=== PATIENT | male | born 1955 | race Caucasian/White ===

== ENCOUNTER 2019-03-06 22:22 | Inpatient (IN) | payer OTHER, MEDICAID ==
[~2019-03-06] VITALS: Ht 167.6 cm; Wt 65.8 kg
--- NOTE | 2019-03-06 23:16 | NUR ---
NO ANS IN THE LOBBY.
--- NOTE | 2019-03-06 23:30 | NUR ---
NO ANSWER IN LOBBY
[2019-03-07 00:05] VITALS: Ht 167.6 cm; Wt 65.8 kg
--- NOTE | 2019-03-07 00:35 | NUR ---
XRAY AT BEDSIDE.
--- NOTE | 2019-03-07 00:37 | NUR ---
PT PRESENTS TO ED WITH C/C OF DIZZINESS AND TREMBLING BEGINNING PRIOR TO DIALYSIS THIS EVENING. PER PT, HE WAS TURNED AWAY FROM DIALYSIS THIS EVENING DUE TO BEING "TOO UNWELL TO GO THROUGH DIALYSIS." PER PT, DIALYSIS CENTER TOLD HIM TO GO TO THE HOSPITAL. PT REPORTS THAT HE HAS ALSO HAD A PRODUCTIVE COUGH SINCE LAST WEDNESDAY. DENIES SOB OR CP, DENIES FEVER. PT ALSO REPORTS HAVING RIGHT, BIG TOE PAIN. TOE NOTED TO BE BLACKENED TO THE BASE WITH SLOUGHING AND EDEMA NOTED TO THE BASE OF THE TOES. REDNESS AND EDEMA NOTED UP TO MID FOOT. PT REPORTS TOE HAS BEEN BLACKENED FOR APPROXIMATELY 3 DAYS. PT ALSO REPORTS FEELING NAUSEOUS FOR THE PAST FEW DAYS. PT IS AWAKE, SPEAKING IN FULL CLEAR SENTENCES, AAOX4, RESP E/U, NAD NOTED. MSE COMPLETED BY DR. ABDI.
--- NOTE | 2019-03-07 00:45 | NUR ---
DR. ABDI AT BEDSIDE.
[2019-03-07 00:55] LABS: PLATELET COUNT 205 x10^3mcL (130-400); RED CELL DISTRIBUTION WIDTH 14.4 % (11.5-14.5)
[2019-03-07 01:03] LABS: ALBUMIN 2.7 g/dL (3.4-5.0); BILIRUBIN TOTAL 0.55 mg/dL (0.20-1.00); CARBON DIOXIDE 33.3 mmol/L (21-32); POTASSIUM SERUM 4.6 mmol/L (3.5-5.1); TOTAL PROTEIN, SERUM 7.2 g/dL (6.4-8.2)
[2019-03-07 01:04] LABS: CREATININE SERUM 10.1 mg/dL (0.7-1.3)
[2019-03-07 01:10] LABS: BAND NEUTROPHIL 3 % (0-10); BASOPHIL 0 % (0-2); MONOCYTE 9 % (0-7); SEGMENTED NEUTROPHILS 80 % (37-75); rbc morphology (normal/abnorm) ABNORMAL (NORMAL)
--- NOTE | 2019-03-07 01:34 | NUR ---
PT MEDICATED PER MD ORDER. PT VERBALIZED UNDERSTANDING OF MEDICATION PRIOR TO ADMINISTRATION.
[2019-03-07] MEDS ORDERED: GOOD SENSE ASPI81 M3 PO (01:46)
[2019-03-07] MEDS ORDERED: NOR10 PO (01:47)
[2019-03-07] MEDS ORDERED: HYDRALAZINE HCL25 MG PO (01:47)
[2019-03-07] MEDS ORDERED: NEPHRO-VITE VITA1 EA PO (01:48)
[2019-03-07] MEDS ORDERED: CARVEDILOL25 M1 GT (01:48)
[2019-03-07] MEDS ORDERED: CARVEDILOL25 M1 PO (01:48)
[2019-03-07] MEDS ORDERED: LIPI10 PO (01:48)
[2019-03-07] MEDS ORDERED: LISINOPRIL40 MG PO (01:49)
[2019-03-07] MEDS ORDERED: PENTOXIFYL XR400 M1 PO (01:49)
[2019-03-07] MEDS ORDERED: GLIPIZIDE10 M2 PO (01:49)
[2019-03-07] MEDS ORDERED: LOPERAMIDE HCL2 MG PO (01:50)
--- NOTE | 2019-03-07 01:56 | NUR ---
REPORT CALLED TO DAYANARA DESHPANDE TO ASSUME CARE FOR PT.
[2019-03-07 02:02] LABS: CHOLESTEROL/HDL RATIO 5.7
--- NOTE | 2019-03-07 02:07 | NUR ---
PT MEDICATED PER MD ORDER. PT VERBALIZED UNDERSTANDING OF MEDICATION PRIOR TO ADMINISTRATION.
[2019-03-07 03:05] VITALS: BP 119/50
--- NOTE | 2019-03-07 03:28 | NUR ---
RECEIVED PT FROM ED, C/O RIGHT FOOT PAIN 09/05. A/O X4. TELE #26 SHOWING SINUS RHYTHM, DENIES CHEST PAIN. PULSES PALPABLE IN ALL EXTREMITIES, NO EDEMA NOTED. LUNG SOUNDS DIMINISHED IN BILATERAL BASES, DENIES SOB, C/O PRODUCTIVE COUGH. BOWEL SOUNDS ACTIVE, LAST BM 03/04/19, PT C/O CONSTIPATION. VOIDING WELL. RIGHT FOOT WEAKNESS. RIGHT BIG TOE BLACK, DOUG. C/O BLURRY VISION AND MILD DIZZINESS. BED IN LOWEST POSITION, SIDE RAILS UP X2, CALL LIGHT WITHIN REACH. WILL CONTINUE TO MONITOR.
[2019-03-07 05:55] VITALS: BP 115/45
--- NOTE | 2019-03-07 06:36 | NUR ---
PT SLEPT PERIODICALLY THROUGHOUT NIGHT, NO ACUTE DISTRESS. ALL NEEDS MET AND ATTENDED TO. IV PATENT AND INTACT. BLOOD GLUCOSE 39, REPEAT RESULT 42. D50 ADMINISTERED. CURRENT BLOOD GLUCOSE 125. D10 INFUSING AT 20ML/HR. BED IN LOWEST POSITION, SIDE RAILS UP X2, CALL LIGHT WITHIN REACH. WILL ENDORSE CARE TO ONCOMING NURSE.
[2019-03-07 07:24] LABS: CALCIUM 8.7 mg/dL (8.5-10.1); CARBON DIOXIDE 27.7 mmol/L (21-32); MAGNESIUM 2.1 mg/dL (1.8-2.4); PHOSPHOROUS 6.3 mg/dL (2.5-4.9); POTASSIUM SERUM 3.8 mmol/L (3.5-5.1)
[2019-03-07 07:28] LABS: CREATININE SERUM 10.3 mg/dL (0.7-1.3)
--- NOTE | 2019-03-07 07:30 | NUR ---
RECEIVED PATIENT IN BED, AWAKE, ALERT AND ORIENTED X 4. TELE 26 NSR. IVF INFUSING WELL TO RT F/A. RESP EVEN AND UNLABORED, LUNGS DIMINISHED. OCCAS MOIST COUGH NOTED, ON ROOM AIR. RT 1ST TOE BLACK, DOUG, LEFT FOOT 2ND-5TH TOES AMP. WELL HEALED. LEFT HAND 3-5TH FINDERS AMP. PATIENT TO HAVE HD TODAY. AV SHUNT LEFT UPPER ARM. NO ACUTE DISTRESS NOTED.
[2019-03-07 07:56] LABS: PLATELET COUNT 173 x10^3mcL (130-400)
[2019-03-07 08:02] LABS: RED CELL DISTRIBUTION WIDTH 14.8 % (11.5-14.5)
[2019-03-07 08:52] VITALS: BP 112/46
[2019-03-07 09:28] LABS: BAND NEUTROPHIL 6 % (0-10); BASOPHIL 0 % (0-2); MONOCYTE 6 % (0-7); PLATELET MORPHOLOGY GIANT PLATELET SEEN; SEGMENTED NEUTROPHILS 84 % (37-75); rbc morphology (normal/abnorm) ABNORMAL (NORMAL); tear drop cell (dacryocyte) 1+
[2019-03-07 12:05] VITALS: BP 119/42
--- NOTE | 2019-03-07 16:14 | NUR ---
PATIENT'S PLAN OF CARE WAS DISCUSSED AND REVIEWED WITH CUTTING MACHINE OPERATOR:RAISA REY. I HAVE REVIEWED THE DATA COLLECTION BY CUTTING MACHINE OPERATOR (NAME):CAM[place] REY. ENTERED ON (DATE/TIME):03/07/19. I CONCUR WITH THE DATA AND ANY EXCEPTIONS OR COMMENTS ARE LISTED BELOW:
[2019-03-07 16:43] VITALS: BP 160/63
--- NOTE | 2019-03-07 17:47 | NUR ---
PATIENT REMAINS IN BED. CLINICAL NURSE LEADER WAS INTO SEE PATIENT THIS AM, AND APPLIED DRESSING TO LEFT FOOT. PATIENT HAD HD DONE THIS AFTERNOON, TOLERATED WELL, 2L OUT. MOIST COUGH CONTINUES TO BE NOTED. MEDICATED WITH NORCO FOR RT FOOT PAIN THIS AM, WITH MINIMAL RELIEF. NOTIFIED AND NEW ORDERS RECIEVED. MEDICATED THIS AFTERNOON WITH PERCOCET FOR RT FOOT PAIN WITH FAIR RELIEF AT THIS TIME. RT FOOT GRT TOE CONTINUES TO HAVE A VERY FOUL ORDER.
--- NOTE | 2019-03-07 19:05 | NUR ---
RECEIVED PT FROM PREVIOUS SHIFT NURSE. PT AOX4, DENIES VIVAR/DIZZINESS. DENIES CP/PRESSURE AT THIS TIME. DENIES SOB/DIFFICULTY BREATHING, ON RA. IV TO RFA, INTACT AND PATENT. BED IN LOWEST POSITION. CALL LIGHT WITHIN REACH. WILL CONTINUE TO MONITOR.
[2019-03-07 21:02] VITALS: BP 134/54
--- NOTE | 2019-03-07 22:00 | NUR ---
TEMP 100.8, MEDICATED PER EMAR.
--- NOTE | 2019-03-07 23:00 | NUR ---
SNACKS PROVIDED TO PT TO EAT THROUGHOUT THE NIGHT.
--- NOTE | 2019-03-07 23:43 | NUR ---
TEMP RECHECKED AFTER ICE PACKS APPLIED, TEMP NOW 101.1.
--- NOTE | 2019-03-08 02:30 | NUR ---
PT RESTING IN BED. RR EVEN AND UNLABORED. IN NO ACUTE DISTRESS. CALL LIGHT WITHIN REACH. BED IN LOWEST POSITION. WILL CONTINUE TO MONITOR.
--- NOTE | 2019-03-08 05:18 | NUR ---
NOTIFIED BY THINNER SPRAYER THAT PT WAS UNRESPONSIVE, SNORING AND DIAPHORETIC. CHECKED BS, READ 15 AND <10. D50 PUSHED X2, PT REMAINED UNRESPONSIVE. A THIRD D50 GIVEN IVP, PT BEGAN TO WAKE UP. BLOOD SUGAR CHECKED >600. IV LEAKING, IV REMOVED, TIP INTACT. NEW IV PLACED TO RAC, INTACT AND PATENT. PT AOX4, BLOOD SUGAR 323 AT THIS TIME. SNACK PROVIDED TO PT. IV FLUIDS RESUMED.
[2019-03-08 06:16] VITALS: BP 122/51
[2019-03-08 06:38] LABS: CARBON DIOXIDE 28.5 mmol/L (21-32); POTASSIUM SERUM 4.4 mmol/L (3.5-5.1)
[2019-03-08 06:40] LABS: CREATININE SERUM 6.8 mg/dL (0.7-1.3)
[2019-03-08 07:03] LABS: PLATELET COUNT 171 x10^3mcL (130-400)
[2019-03-08 07:06] LABS: IRON 17 ug/dL (65-170); TOTAL IRON BINDING CAPACITY 104 ug/dL (250-450)
[2019-03-08 07:17] LABS: BASOPHIL % 0 % (0-2); RED CELL DISTRIBUTION WIDTH 15.1 % (11.5-14.5)
--- NOTE | 2019-03-08 07:30 | NUR ---
PATIENT IS A&OX4, FOLLWOS COMMANDS AND COOPERATES WELL. TELE #26, NSR. PERIPHERAL PULSES PALAPBLE W/ NO SIGNS OF EDEMA. DIMINISHED LUNG SOUNDS TO AUSCULTATION. CRACKLES NOTED. ON RA, W/ O2 SAT 95%. NONPRODUCTIVE COUGH PRESENT. NORMOACTIVE BSX4. VOIDS W/ BRP. HEMODIALYSIS PATIENT. PLAN IS TO RECEIVE HD TODAY. MICHELLE AV SHUNT PRESENT. RIGHT FOOT WEANKESS, BUT ABLE TO AMBULATE. R FOOT GREAT TOE WITH BLACK DISCOLORATION. ABLE TO MOVE TOES AND FEET. DRESSING IS CDI ON RIGHT FOOT R BIG TOE. DENIES ANY PAIN OR DISCOMFORT AT THIS TIME. NO SOB NTOED. RFA IV SITE IS CDI. VSS. WILL CONTINUE TO MONITOR.
[2019-03-08 08:49] VITALS: BP 131/51
--- NOTE | 2019-03-08 11:32 | NUR ---
INQUIRED DR. DALTON ABOUT MAITENANCE IV FLUID D10 RUNNING AT 20 ML/HR W/ NO ORDER IN MED LIST. NOTIFIED MD THAT MOST RECENT BLOOD SUGAR WAS 343 AND GAVE 12 UNITS OF INSULIN. WILL RECHECK. OTHERWISE ORDERED THAT MAITENANCE IV FLUIDS ARE TO BE PAUSED AND THAT IF BLOOD SUGAR IS LOWER THAN 100, RN IS TO RUN D5-1/2NS. WILL CONTINUE TO MONITOR.
[2019-03-08 12:19] VITALS: BP 129/67
[2019-03-08 17:13] VITALS: BP 155/57
--- NOTE | 2019-03-08 18:06 | NUR ---
PATIENT DENIES ANY DISCOMFORT AT THIS TIME. TEMPERATURE RETAKEN AND IT IS 98.1. PATIENT DENIES AN SOB, CHEST PAIN OR ANY GENERAL PAIN AT THIS TIME. ALL QUESTIONS AND CONCERNS HAVE BEEN ADDRESSED AT THIS TIME. WILL CONTINUE TO MONITOR.
--- NOTE | 2019-03-08 20:02 | NUR ---
REC'D PT FROM DAY NURSE. PT RESTING IN BED. AAOX4, SPEECH CLEAR, FOLLOWS COMMANDS. TELE 26. DENIES CP, DIZZINESS, OR PALPITATIONS. DENIES RESP DISTRES OR SOB. BREATHING EVEN/UNLABORED ON RA. ABD SOFT/ROUND. DENIES ABD PAIN, TENDERNESS OR N/V. VOIDING FREELY. LAST HD TODAY, 2L OUT VIA MICHELLE SHUNT. BRUIT/THRILL PRESENT. AMBULATORY. HX L HAND 3RD AND 5TH DIGIT AMPUTATION. L HAND 4TH DIGIT WITHOUT A FINGERNAIL. ALSO HX L FOOT 2ND-5TH TOE AMP. L BIG TOE BLACK. DRESSING TO L FOOT CDI. IV TO RAC DISLODGED, WILL REINSERT. C/O L FOOT PAIN 11/05 WILL GIVE DILAUDID. CALL LIGHT WITHIN REACH, BED AT LOWEST POSITION. WILL CONTINUE TO MNITOR.
[2019-03-08 20:30] VITALS: BP 149/59
--- NOTE | 2019-03-08 21:20 | NUR ---
PT STILL C/O R FOOT PAIN 11/05 S/P DILAUDID. PERCOCET GIVEN PER ORDER. WILL MONITOR FOR RELIEF.
--- NOTE | 2019-03-08 23:45 | NUR ---
PT C/O R FOOT PAIN 11/05. DILAUDID GIVEN PER ORDER.
--- NOTE | 2019-03-09 01:20 | NUR ---
PT STILL IN 11/05 R FOOT PAIN S/P DILAUDID. TAD RN AT BEDSIDE PROVIDED TRANSLATIONS. OFFERED PERCOCET BUT REFUSED. PT STATED ONLY MORPHINE WILL HELP HIS PAIN, AND HE RECEIVED MORPHINE ONE TIME YESTERDAY AFTER DIALYSIS. INFORMED PT HE HAS NOT RECEIVED ANY MORPHINE DURING THIS ADMINISTRATION AND DOES NOT HAVE ANY MORPHINE ON HIS EMAR. PT ALSO INFORMED DILUDID IS STRONGER THAN MORPHINE. AGAIN OFFERED PERCOCET BUT PT REFUSED AND STATED "IF I'M NOT GETTING MORPHINE I DON'T WANT ANYTHING. I'D RATHER BE IN PAIN." WILL PAGE DR. CLEMENTE AND REQUEST TO HAVE PAIN MEDS CHANGED.
--- NOTE | 2019-03-09 01:25 | NUR ---
SPOKE TO DR. TURNER MADE AWARE. STATED WILL ORDER ONE TIME MORPHINE
--- NOTE | 2019-03-09 02:45 | NUR ---
PT RESTING IN BED WITH EYES CLOSED. LAYING ON L SIDE. NO SIGNS OF DISTRESS OR PAIN NOTED. BREATHING EVEN/UNLABORED ON RA. CALL LIGHT WITHIN REACH, BED AT LOWEST POSITION. WILL CONTINUE TO MONITOR.
--- NOTE | 2019-03-09 05:30 | NUR ---
PT RESTING IN BED. C/O 11/05 R FOOT PAIN. MORPHINE GIVEN PER ORDER. DRESSING TO R FOOT UNRAVELING. KERLIX THOMAS AND WHITE KIERSTEN BANDAGE REMOVED. BLACK TOE NOTED WITH BLACK TISSUE EXTENDING TO PLANTAR FOOT. DARK TISSUE OUTLINED WITH MARKER. PT CLEANSED WITH CHG WIPES. APPLIED BETADINE, AIR DRIED, AND WRAPPED WITH KERLIX CLING AND WHITE KIERSTEN BANDAGE WITH VERY LIGHT PRESSURE. PLAN FOR ANGIOGRAM WITH POSSIBLE ANGIOPLASTY AND STENT AT NOON. SURGICAL CONSENT SIGNED AND CHECKLIST IN PROGRESS. PT WROTE HIS INITIALS ON R THIGH. NPO SINCE MIDNIGHT. BS 161- INSULIN HELD. IV TO RAC PATENT AND INTACT. CALL LIGHT WITHIN REACH, BED AT LOWEST POSITION. WILL ENDORSE TO DAY NURSE.
[2019-03-09 06:05] VITALS: BP 131/63
--- NOTE | 2019-03-09 06:13 | NUR ---
PT STILL C/O /10 R FOOT PAIN S/P MORPHINE. PERCOCET GIVEN PER ORDER.
--- NOTE | 2019-03-09 07:30 | NUR ---
PATIENT IS A&OX4, FOLLOWS COMMANDS AND COOPERATES WELL. SUDANESE SPEAKING. TELE #26, NSR. DENIES ANY CHEST PAIN. PERIPHERAL PULSES PALPABLE W/ NO SIGNS OF EDEMA. LUNG SOUNDS CTA BILATERALLY. O2 SAT 98%. NORMOACTIVE BSX4. MICHELLE AV SHUNT FOR HEMODIALYSIS. VOIDS WELL. GENERALIZWED WEAKNESS BUT ABLE TO AMBULATE. R BIG TOE BLACK DISCOLORATION. IV SITE IS CDI. WILL CONTINUE TO MONITOR. PATIENT IS TO GO TO [employer] [facility] TODAY. ALL QUESTIONS AND CONCERNS HAVE BEEN ADDRESSED TODAY.
[2019-03-09 07:33] LABS: BASOPHIL % 0.2 % (0-2); PLATELET COUNT 199 x10^3mcL (130-400); RED CELL DISTRIBUTION WIDTH 14.9 % (11.5-14.5)
[2019-03-09 08:42] VITALS: BP 128/54
[2019-03-09 09:53] LABS: CALCIUM 8.8 mg/dL (8.5-10.1); CARBON DIOXIDE 32.5 mmol/L (21-32); MAGNESIUM 1.7 mg/dL (1.8-2.4); PHOSPHOROUS 3.3 mg/dL (2.5-4.9)
[2019-03-09 09:55] LABS: CREATININE SERUM 4.6 mg/dL (0.7-1.3)
--- NOTE | 2019-03-09 10:52 | NUR ---
PATIENT HAS BEEN PICKED UP BY OR FOR BANQUET BARTENDER PROCEDURE. ALL QUESTIONS AND CONCERNS HAVE BEEN ADDRESSED BY PATIENT AND OR TEAM. PATIENT SHOWS NO SIGNS OF DISCOMFORT OF DISTRESS AT THIS TIME.
--- NOTE | 2019-03-09 13:54 | NUR ---
1. Recommend CCHO, Renal diet. 2. Recommend Neprovite. Discussed with Dr. Cramer.
--- NOTE | 2019-03-09 13:54 | NUR ---
Initial Nutrition Assessment: 257T/A SHALOM GORDON IA HR Dx: R foot cellulitis, renal failure PMHx: renal disease on HD, HTN, HLD, diabetes type 2 PSHx: Other (fistula left arm) Labs: BG 230H, BUN 40H, CREAT 6.8H, ALB 2.7L, A1C 7.7H, WBC 15.4H Meds: Colace, D50%, Humulin, vancomycin, Zofran, zosyn Diet: NPO (R leg angiogram, possible angioplasty, (03/07-)- CCHO PO intake since admission: (03/08) dinner 75%, breakfast 100%, (03/07) lunch 100%, breakfast 80% Ht: 167.64 cm (66") Wt: 64.9 kg (143#) BMI: 23.1 kg/m2 Bed scale: unable to access IBW: 142# (64 kg) %IBW: 100 UBW: unable to access Age: 64/M Food Allergies: NKFA Skin: R foot black hallux Jr: 19 Edema: none GI: Last BM: 03/08 Per H&P, Pt is a 64 year old male with past medical history significant for renal disease on HD, HTN, HLD, diabetes type 2 presented to the ER today for generalized weakness, worsening pain of the right great toe and surrounding area. RD Note (03/09): Patient was not in the room and has gone for angioplasty procedure. Per RN Yvan, patient has good PO and no c/o of N/V/D/C at this time. Patient had HD yesterday FNS received consult for 'malnutrition' on 03/07 Problem with: N/V/D/C: none per RN Problems with: Chewing: Swallowing: none per RN Current appetite: good per RN Recent wt change: unable to access %wt change: N/A Vitamin/Supplement use: unable to access Special diet at home: unable to access Physical activity: unable to access Nutrition education given: not possible at this time Food-drug interactions: none Education given: n/a Estimated Nutritional Needs Based on current body weight (64.9 kg) Energy: 9661-3987 kcal/day (30-35 kcal/kg for dialysis) Protein: 78-91 g/day (1.2-1.4 g/kg for dialysis) Fluid: 9170-2707 mL/day (1 mL/kcal) Nutrition Diagnosis: 1. Increased nutrient needs related to increased metabolic demands as evidenced by HD Intervention 1. Recommend CCHO, Renal diet. 2. Recommend Neprovite. Discussed with Dr. Cramer. Monitor/Evaluate Goal: PO intake at least 75% of estimated needs Monitor: PO intake, Labs, GI function F/U in 7 days as low risk 03/16
--- NOTE | 2019-03-09 14:29 | NUR ---
PATIENT ARRIVED FROM OR. PATIENT DOES NOT APPEAR TO BE IN ANY PAIN OR DISTRESS AT THIS TIME. PATIENT UNDERSTANDS THAT HE MUST LAY SUPINE SINCE HE HAD AN ANGIOGRAM. PATIENT VSS. PATIENT IS A&OX4, NO SIGNS OF SOB. DENIES ANY CHEST PAIN. DENIES ANY WEAKNESS AND PAIN IN THE RIGHT LOWER EXTREMITY. WILL CONTINUE TO MONITOR.
--- NOTE | 2019-03-09 14:35 | NUR ---
RECEIVED PT FROM OUT. PT IS A/O X4, VERBAL RESPONSIVE, DENY ANY RESPIRATORY DISTRESS, DENY ANY PAIN AT THIS MOMENT, V/S 144/66, PO2 93%, RR 20, HR 91, TEMP 98.2. DRESSING AT LEFT GROIN AREA IS INTACT, NO BLEEDING, NOTED. IV AT RIGHT AC, NO LEAKING, NO INFILTRAITON. ALL ADLS ASSIST, ALL NEED MET, CALL LIGHT IN REACH, WILL CONTINUE TO MONITOR.
[2019-03-09 14:37] VITALS: BP 146/66
[2019-03-09 18:04] VITALS: BP 150/60
--- NOTE | 2019-03-09 18:11 | NUR ---
CONTACTED MD PERTAINING DIET ORDER FOR DINNER SINCE PATIENT STILL HAD AN NPO ORDER. AWAITING ORDER FROM DR. DALTON.
--- NOTE | 2019-03-09 18:51 | NUR ---
PATIENT'S FAMILY IS PRESENT AT THIS TIME. ALL QUESTIONS AND CONCERNS HAVE BEEN ADDRESSED AT THIS TIME. PATIENT DENIES ANY PAIN OR DISCOMFORT AT THIS TIME. WILL CONTINUE TO MONITOR.
--- NOTE | 2019-03-09 19:30 | NUR ---
REC'D PT FROM DAY NURSE. FAMILY AT BEDSIDE. PT RESTING IN BED. AAOX4, SPEECH CLEAR, FOLLOWS COMMANDS. TELE 26. DENIES CP, DIZZINESS, OR PALPITATIONS. DENIES RESP DISTRESS OR SOB. BREATHING EVEN/UNLABORED ON RA. C/O CONGESTED COUGH. ABD SOFT/ROUND. DENIES ABD PAIN, TENDERNESS, OR N/V. PASSING GAS. NO BM S/P ANGIOGRAM. TEGADERM TO L GROIN IN PLACE, NO DRAINAGE NOTED. PT REPORTS TENDERNESS TO SITE UPON PALLPATION. DENIES ANY PAIN AT REST. VOIDING FREELY. LAST HD 03/08, 2L OUT VIA MICHELLE SHUNT. BRUIT/THRILL PRESENT. AMBULATORY. DRESSING TO R FOOT CDI. DENIES NUMBING OR TINGLING. HX L HAND 3RD AND 5TH DIGIT AMP, HX L FOOT 2-5TH TOE AMP. IV TO RAC FLUSHED AND PATENT, SITE WNL. CALL LIGHT WITHIN REACH, BED AT LOWEST POSITION. WILL CONTINUE TO MONITOR.
[2019-03-09 21:00] VITALS: BP 141/49; BP 414/49
--- NOTE | 2019-03-09 21:20 | NUR ---
BS 200. PT REFUSED 3 UNITS REG INSULIN. EDUCATION PROVIDED REGARDING INSULIN INCLUDING INDICATION, SIDE EFFECTS, AND SLIDING SCALE. PT STILL REFUSED D/T HIS HISTORY OF TAKING INSULIN AND BS DIPPING DOWN TOO LOW. RESIDENT MADE AWARE.
--- NOTE | 2019-03-09 23:44 | NUR ---
PT RESTING IN BED WITH EYES CLOSED. QUIETLY SNORING. NO SIGNS OF DISTRESS OR PAIN NOTED. BREATHING EVEN/UNLABORED ON RA. CALL LIGHT WITHIN REACH, BED AT LOWEST POSITION. WILL CONTINUE TO MONITOR.
--- NOTE | 2019-03-10 00:41 | NUR ---
PT C/O MODERATE PAIN TO R FOOT 5/10. PERCOCET GIVEN PER ORDER.
--- NOTE | 2019-03-10 03:28 | NUR ---
PT C/O CONGESTED COUGH AND REQUESTING MEDICATION. DR. TURNER MADE AWARE. REC'D ORDER FOR ROBITUSSIN BUT PT NOW ASLEEP. WILL GIVE WHEN PT AWAKENS
[2019-03-10 04:56] VITALS: BP 132/48
--- NOTE | 2019-03-10 06:50 | NUR ---
PT AWAKE AND RESTING IN BED. C/O 10/ R FOOT PAIN. IV TO RAC DISLODGED, AND NEW IV REINSERTED TO RFA. MORPHINE GIVEN PER ORDER. PT ALSO C/O CONGESTED COUGH, ROBITUSSIN GIVEN. DRESSING TO R FOOT CDI. WOUND CARE PROVIDED: DRESSING REMOVED. BLACK TOE WITH BLACK TISSUE OUTLINED- SOME DARK TISSUE EXTENDING OUT THE OUTLINED AREA. NO DRAINAGE NOTED. ODORUS. CLEANSED WITH BETADINE, AIR DRIED, AND APPLIED KERLIX THOMAS THEN KIERSTEN WRAP WITH VERY LIGHT PRESSURE. DRESSING TO L GROIN CDI. NO SIGNIFICANT CHANGES DURING SHIFT. PLAN FOR HD TODAY. CALL LIGHT WITHIN REACH, BED AT LOWEST POSITION. WILL ENDORSE TO DAY NURSE.
[2019-03-10 06:52] LABS: BASOPHIL % 0.2 % (0-2); PLATELET COUNT 197 x10^3mcL (130-400)
[2019-03-10 07:04] LABS: CALCIUM 8.8 mg/dL (8.5-10.1); CARBON DIOXIDE 28.7 mmol/L (21-32); MAGNESIUM 1.9 mg/dL (1.8-2.4); PHOSPHOROUS 3.7 mg/dL (2.5-4.9)
--- NOTE | 2019-03-10 07:05 | NUR ---
RECEIVED PT FROM JORGE AVILA. PT AA/OX4 LAYING IN BED. SPEAKS SWEDISH. NO S/S OF ACUTE DISTRESS. FOLLOWS COMPLEX COMMANDS. RESPONDS TO VERBAL STIMULI. SPEECH CLEAR. FACE SYMMETRICAL. NO VIVAR. NO DIZZINESS. NO N/V. DENIES PAIN AT THIS TIME. NO SOB ON ROOM AIR. NO CHEST PAIN. NSR ON TELE 26, HR 85. RR EVEN/UNLABORED. CHEST EXPANSION SYMMETRICAL. IV WNL TO RFA, 20 GAUGE. SALINE LOCKED. AV SHUNT TO MICHELLE. EXTREMITY RESTRICTIONS IN PLACE. DRESSING TO RLE CDI. CHANGED BY JORGE AVILA TODAY 03/10/19. INSTRUCTED TO USE CALL LIGHT TO CALL FOR ASSISTANCE PRN. PT VERBALIZED UNDERSTANDING. BED IN LOW POSITION. CALL LIGHT WITHIN REACH. WILL CONT. TO MONITOR.
[2019-03-10 07:42] LABS: CREATININE SERUM 6.5 mg/dL (0.7-1.3); POTASSIUM SERUM 5.6 mmol/L (3.5-5.1)
--- NOTE | 2019-03-10 07:48 | NUR ---
CRITICAL LABS K 5.6 AND CREATININE 6.5. MEDICAL LABORATORY TECHNICAL OFFICER MARIIA AWARE , NO CHANGE IN ORDERS AT THIS TIME. MEDICAL LABORATORY TECHNICAL OFFICER TO SEE PT.PT SCHEDULED FOR HD TODAY.WILL CONTINUE TO MONITOR.
[2019-03-10 08:02] VITALS: BP 138/52
--- NOTE | 2019-03-10 08:05 | NUR ---
TEMP 100.2 ORAL[address] CO[address] MEASURES IN PL[address].NO N/V, NO CHILLS. NO SOB ON RA, NO VIVAR,NO DIZZINESS,NO CHEST PAIN. WILL CONTINUE TO MONITOR.
[2019-03-10 08:23] LABS: RED CELL DISTRIBUTION WIDTH 15.3 % (11.5-14.5)
--- NOTE | 2019-03-10 08:37 | NUR ---
WBC 17.6, HGB 7.1. HCT 21 . WILL NOTIFY JATIN CHIANG.
--- NOTE | 2019-03-10 09:40 | NUR ---
PT RECEIVING HD AT THIS TIME. HD RN TEJEDA AT BEDSIDE. DR. NOE VISITED W/ PATIENT, WOUNDCARE PROVIDED BY PHYSICIAN. DRESSING CDI. NO S/S OF ACUTE DISTRESS. WILL CONT. TO MONITOR.
[2019-03-10 11:44] VITALS: BP 166/48
--- NOTE | 2019-03-10 13:23 | NUR ---
BP ELEVATED 179/57. HD COMPLETED, OUTPUT 2L. DENIES VIVAR. NO DIZZINESS. NO CHEST PAIN. NO N/V. NO TREMORS. CALM/COOPERATIVE LAYING IN BED. AA/OX4. GIVEN PO BP MED, SEE MAR. NO S/S OF ACUTE DISTRESS. IV WNL TO RFA, NO REDNESS, NO SWELLING, NO INFILTRATION. IV ANTIBIOTICS RUNNING. SEE MAR. BED IN LOW POSITION. CALL LIGHT WITHIN REACH. WILL CONT. TO MONITOR.
[2019-03-10 14:27] VITALS: BP 165/56
--- NOTE | 2019-03-10 14:27 | NUR ---
PT'S BP IS TRENDING DOWN 165/56. DRESSING RLE FOUND DISPLACED/ OFF PT. DRESSING CHANGED, CDI. PT AAOX4, WATCHING TV. IV INTACT RFA, IV ANTIBIOTIC RUNNING. NO C/O PAIN. BED IN LOW POSTION, CALL LIGHT WITHIN REACH. CONTINUE TO MONITOR.
[2019-03-10 15:47] VITALS: BP 145/49
--- NOTE | 2019-03-10 16:18 | NUR ---
TEMPERATURE ELEVATED 101.8F ORAL. GIVEN PO TYLENOL FOR ELEVATED TEMP. COOLING MEASURES IN PLACE. BLANKETS REMOVED. DENIES N/V. NO CHILLS. NO S/S OF ACUTE DISTRESS. NO VIVAR. NO DIZZINESS. CALM/COOPERATIVE. AA/OX4. PT BROTHER AT BEDSIDE. BED IN LOW POSITION. CALL LIGHT WITHIN REACH. WILL MONITOR.
--- NOTE | 2019-03-10 18:03 | NUR ---
TEMP 98.8F. TRENDING DOWN. NO S/S OF ACUTE DISTRESS. PT LAYING IN BED. AA/OX4. NO C/O PAIN. NO SOB ON ROOM AIR. NO CHEST PAIN. AV SHUNT TO MICHELLE +THRILL/BRUIT. TEGADERM TO LEFT GROIN CDI. NO BLEEDING NOTED. SKIN COLOR NORMAL FOR ETHNICITY, NO BRUISING AT SITE. IV WNL TO RFA, NO REDNESS, NO SWELLING, NO INFILTRATION. IV SALINE LOCKED. AMBULATORY TO RESTROOM, GAIT STEADY. VOID X1. RETURNED TO BED. FAMILY AT BEDSIDE. PT TOLERATING CCHO/RENAL DIET. NO N/V. NO CHILLS. BED IN LOW POSITION. CALL LIGHT WITHIN REACH. WILL ENDORSE TO ONCOMING SHIFT.
--- NOTE | 2019-03-10 18:35 | NUR ---
PT RESTING WITH BOTH EYES CLOSED.ON RA,NO SOB, SHOWS NO SIGN OF DISTRESS.IV TO RFA INTACT AND PATENT. AV SHUNT THRILL AND BRUIT PRESENT. NO FEVER,CHILLS, NO N/V. DRESSING TO RIGHT FOOT IS CLEAN AND DRY. BED IN LOW POSITION, CALL LIGHT WITHIN EASY REACH.
[2019-03-10 19:39] VITALS: BP 155/60
--- NOTE | 2019-03-10 20:15 | NUR ---
PT CURRENTLY RESTING IN BED, NO ACUTE DISTRESS. A/O X4. TELE #26 SHOWING SINUS RHYTHM, DENIES CHEST PAIN. PULSES PALPABLE IN ALL EXTREMITIES, NO EDEMA NOTED. LUNG SOUNDS CTA BILATERALLY, DENIES SOB. BOWEL SOUNDS ACTIVE, LAST BM 03/10/19. VOIDING WELL. MICHELLE AV SHUNT, LAST HD 03/10/19 2L OUT. MILD RLE WEAKNESS, AMBULATORY. RIGHT 1ST TOE BLACK, DRESSING CDI. IV PATENT AND INTACT. BED IN LOWEST POSITION, SIDE RAILS UP X2, CALL LIGHT WITHIN REACH. WILL CONTINUE TO MONITOR.
--- NOTE | 2019-03-11 01:10 | NUR ---
PT CURRENTLY RESTING IN BED, NO ACUTE DISTRESS. WILL CONTINUE TO MONITOR.
[2019-03-11 04:10] VITALS: BP 158/57
[2019-03-11 06:05] LABS: CALCIUM 8.7 mg/dL (8.5-10.1); CARBON DIOXIDE 31.1 mmol/L (21-32); POTASSIUM SERUM 4.4 mmol/L (3.5-5.1)
[2019-03-11 06:06] LABS: CREATININE SERUM 4.8 mg/dL (0.7-1.3)
--- NOTE | 2019-03-11 06:11 | NUR ---
PT SLEPT PERIODICALLY THROUGHOUT NIGHT, NO ACUTE DISTRESS. ALL NEEDS MET AND ATTENDED TO. NO SIGNIFICANT CHANGES. IV PATENT AND INTACT. PODIATRY AT BEDSIDE, DRESSING CHANGE TO RIGHT FOOT PERFORMED. BED IN LOWEST POSITION, SIDE RAILS UP X2, CALL LIGHT WITHIN REACH. WILL ENDORSE CARE TO ONCOMING NURSE.
[2019-03-11 06:14] LABS: PLATELET COUNT 205 x10^3mcL (130-400)
[2019-03-11 06:49] LABS: BASOPHIL % 0 % (0-2); RED CELL DISTRIBUTION WIDTH 14.6 % (11.5-14.5)
--- NOTE | 2019-03-11 07:30 | NUR ---
SEEN IN BED AAOX4. ALBANIAN SPEAKING. STATED NO PAIN TO LEFT TOE. DRSG TO LEFT FOOT CDI. ON TELE# 26 NSR. BREATHING E/U ON ROOM AIR. ON CCHO DIET. LAST HD WAS YESTERDAY WITH 2 L OUTPUT. AV SHUNT TO LEFT ARM (+) BRUIT/THRILL. DRSG TO LEFT FOOT CDI. S/L TO RFA INTACT AND PATENT. CALL LIGHT PLACED WITHIN EASY REACH. SIDERAILS UP X2.
[2019-03-11 08:16] VITALS: BP 148/46
[2019-03-11 10:35] LABS: rbc morphology (normal/abnorm) NORMAL (NORMAL)
[2019-03-11 12:00] VITALS: BP 153/52
--- NOTE | 2019-03-11 12:03 | NUR ---
PS=[id number]. REFUSED REGULAR INSULIN SLIDING SCALE COVERAGE STATED HE HAD LOW EPISODE OF BLOOD SUGAR AFTER INSULIN GIVEN STATED HIS BODY VERY SENSISTIVE TO INSULIN. DENIES PAIN. MADE AWARE PLAN OF CARE. AWAITING FOR SOCIAL SERVICE FOR A TRANSFER TO HIGHER LEVEL OF CARE.
[2019-03-11 16:27] VITALS: BP 149/58
--- NOTE | 2019-03-11 17:41 | NUR ---
PRBS 2 UNITS CLARIFIED WITH DAYANARA COLEMAN. WILL BE GIVEN BY TEJEDA DIALYSIS NURSE DURING HEMODIALYSIS.
--- NOTE | 2019-03-11 18:58 | NUR ---
NO ACUTE DISTRESS THROUGHOUT SHIFT. VSS. HEMODIALYSIS ONGOING. ALL NEEDS ATTENDED. S/L TO RFA INTACT AND PATENT.
--- NOTE | 2019-03-11 20:07 | NUR ---
PT CURRENTLY RESTING IN BED, NO ACUTE DISTRESS. A/O X4. TELE #26 SHOWING SINUS RHYTHM, DENIES CHEST PAIN. PULSES PALPABLE IN ALL EXTREMITIES, PEDAL PULSES WEAK, NO EDEMA NOTED. LUNG SOUNDS CTA BILATERALLY, DENIES SOB. BOWEL SOUNDS ACTIVE, LAST BM 03/10/19. HD COMPLETED AT 1930, 1.4L OUT. MILD RLE WEAKNESS, AMBULATORY. RIGHT 1ST TOE BLACK, DRESSING CDI. IV PATENT AND INTACT. BED IN LOWEST POSITION, SIDE RAILS UP X2, CALL LIGHT WITHIN REACH. WILL CONTINUE TO MONITOR.
[2019-03-11 20:28] VITALS: BP 186/64
[2019-03-11 22:12] VITALS: BP 165/43
--- NOTE | 2019-03-12 00:17 | NUR ---
PT C/O PAIN IN LEFT INDEX FINGER 8/, MEDICATED PAIN PER EMAR. DISCOLORATION NOTED TO LEFT FINGERTIP, PHOTOS TAKEN. PT CURRENTLY RESTING IN BED, WILL CONTINUE TO MONITOR.
[2019-03-12 05:45] VITALS: BP 161/62
[2019-03-12 06:34] LABS: BASOPHIL % 0.2 % (0-2); PLATELET COUNT 211 x10^3mcL (130-400)
[2019-03-12 06:56] LABS: CALCIUM 8.9 mg/dL (8.5-10.1); CARBON DIOXIDE 31.5 mmol/L (21-32); PHOSPHOROUS 3.4 mg/dL (2.5-4.9); POTASSIUM SERUM 3.5 mmol/L (3.5-5.1)
[2019-03-12 06:57] LABS: CREATININE SERUM 4.1 mg/dL (0.7-1.3)
[2019-03-12 07:14] LABS: RED CELL DISTRIBUTION WIDTH 17.4 % (11.5-14.5)
--- NOTE | 2019-03-12 07:15 | NUR ---
RECEIVED PT FROM NIGHT NURSE. PT IS LAYING DOWN IN BED WITH HOB UP RESTING WITH EYES CLOSED. PT LOOKS TO BE IN NO ACUTE DISTRESS AT THIS TIME AND DENIES ANY PAIN. IV SITE PATENT WITH NO SIGNS OF ERYTHEMA OR SWELLING. RESPIRATIONS EVEN AND UNLABORED ON ROOM AIR. DRESSING TO RIGHT TOE IS CDI. AV FISTULA NOTED TO MICHELLE. TELE MONITOR PRESENT. CALL LIGHT WITHIN REACH. WILL CONITNUE TO MONITOR.
[2019-03-12 08:21] VITALS: BP 161/55
--- NOTE | 2019-03-12 08:45 | NUR ---
NOTED NEW BLACK DISCOLORATION/ SCAB TO RIGHT 5TH DIGIT, NO DRAINAGE OR FOUL SMELL NOTED. SPORTS LAWYER NIKKI AWARE. PICTURES TAKEN AND PLACED IN THE CHART. PT DENIES ANY PAIN TO THE SITE.
[2019-03-12 11:50] VITALS: BP 168/84
--- NOTE | 2019-03-12 11:58 | NUR ---
PT BLOOD SUGAR IS 268 AND PT IS ASYMPTOMATIC AT THIS TIME. RECEIVED INFORMATION FROM COPYRIGHT EXPERT THAT PT IS VERY SENSITIVE TO INSULIN AND HAS NOT BEEN RECEIVING REGULAR INSULIN COVERAGE BASED ON PT'S SLIDING SCALE. INFORMED CLAIMS VICE PRESIDENT NIKKI OF PT'S BLOOD SUGAR TRENDS AND INFORMED THAT PT HAS A HISOTRY THIS HOSPITALIZATION PERIOD OF BLOOD SUGAR DECREASING GREATLY WITH REGULAR INSULIN. CLAIMS VICE PRESIDENT NIKKI INFORMED NOT TO COVER BLOOD SUGAR WITH INSULIN AT THIS TIME. WILL CONTINUE TO MONITOR PT FOR HYPERGLYCEMIA.
[2019-03-12 13:58] VITALS: BP 150/65
[2019-03-12 16:31] VITALS: BP 155/48
--- NOTE | 2019-03-12 18:27 | NUR ---
CHANGED DRESSING TO RIGHT FOOT. RIGHT BIG TOE IS BLACK IN COLOR AND IS PROGRESSING TO THE LATERAL SIDE OF THE RIGHT FOOT. FOUL SMELL NOTED TO RIGHT TOE. NO DRAINAGE NOTED. PT TOLERATED DRESSING CHANGE WELL. DRESSING NOW CDI, WILL CONTINUE TO MONITOR.
--- NOTE | 2019-03-12 18:30 | NUR ---
PT IS LAYING DOWN IN BED WITH HOB UP TALKING WITH FAMILY MEMBERS. PT LOOKS TO BE IN NO ACUTE DISTRESS AT THIS TIME AND DENIES ANY PAIN. RESPIRATIONS EVEN AND UNLABORED ON ROOM AIR. IV SITE PATENT WITH NO SIGNS OF ERYTHEMA OR SWELLING. DRESSING TO RIGHT FOOT IS CDI. CALL LIGHT WITHIN REACH. WILL ENDORSE TO ONCOMING SHIFT.
[2019-03-12 19:41] VITALS: BP 152/48
--- NOTE | 2019-03-12 20:01 | NUR ---
AWAKE AND ALERT, ABLE TO MAKE NEEDS KNOWN. BREATHING EVEN AND UNLABORED ON ROOM AIR. MED SURG PT. DENIES HAVING PAIN. SALINE LOCK TO RIGHT FOREARM. DIALYSIS SHUNT TO LEFT UPPER ARM POSITIVE FOR BRUITT AND THRILLS. DRESSING TO RIGHT BIG TOE CDI. CALL LIGHT WITHIN EASY REACH.
--- NOTE | 2019-03-12 22:42 | NUR ---
AWAKE AND ALERT, BREATHING EVEN AND UNLABORED ON ROOM AIR. PHOTODOCUMENTATION OF SKIN ALTERATIONS DONE PER PROTOCOL. REMOVED DRESSING TO RIGHT BIG TOE. NOTED BLACKENED AREA OF RIGHT BIG TOE TOWARDS MID FOOT. NEW DRESSING OF 4X4 WITH BETADINE TO RIGHT BIG TOE, COVERED WITH KERLIX GAUZE, SECURED WITH KIERSTEN WRAP. PT TOLERATED WELL.
[2019-03-13] VITALS (7 sets, daily range): BP systolic 142–186; BP diastolic 49–68
--- NOTE | 2019-03-13 00:17 | NUR ---
EYES CLOSED, BREATHING EVEN AND UNLABORED ON ROOM AIR. CALL LIGHT WITHIN EASY REACH.
--- NOTE | 2019-03-13 05:59 | NUR ---
EYES CLOSED, EASILY AWAKENED. BREATHING EVEN AND UNLABORED ON ROOM AIR, CALL LIGHT WITHIN EASY REACH.
--- NOTE | 2019-03-13 07:20 | NUR ---
EYES CLOSED, BREATHING EVEN AND UNLABORED ON ROOM AIR. CALL LIGHT WITHIN EASY REACH. ENDORSED TO NURSE DAV
--- NOTE | 2019-03-13 07:30 | NUR ---
RECEIVED PT IN BED A/A/OX4 DENIES VIVAR. RESP EVEN AND UNLABORED WITH CLEAR BS BILAT. DENIES ANY SOB/CP/PRESSURE AT THIS TIME. NO EDEMA NOTED. IV SL TO RFA. ABD SOFT, NONTENDER WITH ACTIVE BS X4. DENIES ANY N/V. ESRD WITH HD MWF, DUE TODAY. LUE AV SHUNT WITH +B/T. PT WITH GANGRENOUS RT GREAT TOE. WITH BETADINE SOAKED DRSG IN PLACE CDI. OT NOTED WITH SOME DRY WOUNDS TO RT AND LT HAND WITH AMPUTATION 3RD AND 5TH DIGIT. CALL LIGHT IN REACH NEEDS ATTENDED TO.
--- NOTE | 2019-03-13 11:00 | NUR ---
MADE AWARE BY CLINICAL DOCUMENTATION CLERK THAT DR. HUANG WILL BE FOLLOWING PT OUTPATIENT FOR CARE.
--- NOTE | 2019-03-13 15:00 | NUR ---
HD NURSE AT BEDSIDE TO START HD.
--- NOTE | 2019-03-13 16:25 | NUR ---
MADE AWARE BY HD NURSE THAT PT B/P WAS UPTO 194/80, HELD MEDS FROM THIS AM GIVEN AT THIS TIME. PT ALSO C/O PAIN TO RLE MEDICATED WITH MORPHINE IVP PER EMAR. CONT TO MONITOR.
--- NOTE | 2019-03-13 17:00 | NUR ---
JATIN WHITTINGTON CALLED WITH NO RESPONSE. REGARDING B/P 196/66. DR. BERMAN CALLED AND MADE AWARE PT SBP>190 DURING HD. REVIEW GIVEN MEDS. OBTAINED ORDER FOR HYDRALAZINE 10MG IVP Q4HP SBP>160. 1715: WET PROCESS MILLER CALLED AT THIS TIME WITH ORDER TO TRANSFER PT TO TELE SERVICES TO GIVE IVP MEDS AND TO ADD CLONIDINE 0.1 MG PO Q6HP SBP>160. TELE MONITOR CALLED AND OBTAINED TELE. PT PLACED ON TELE #12 WITH NSR. 1721: HYDRALAZINE 10MG IVP GIVEN.
--- NOTE | 2019-03-13 18:10 | NUR ---
HD TREATMENT COMPLETED WITH LATEST B/P 168/60 HR 78 WITH 3L OUTPUT. PT TOLERATED WELL. CALL LIGHT IN REACH NEEDS ATTENDED TO.
[2019-03-14 05:40] VITALS: BP 145/56
--- NOTE | 2019-03-14 06:20 | NUR ---
PT RESTING IN BED AT THIS TIME. DENIES PAIN OR DISCOMFORT. BREATHING E/U ON RA. NO S/S OF ACUTE DISTRESS AT THIS TIME. BED AT LOWEST POSITION. CALL LIGHT WITHIN REACH. WILL CONTINUIE TO MONITOR.
[2019-03-14 06:53] LABS: BASOPHIL % 0.5 % (0-2); PLATELET COUNT 227 x10^3mcL (130-400)
--- NOTE | 2019-03-14 07:30 | NUR ---
PT RESTING IN BED AT THIS TIME. DENIES PAIN OR DISCOMFORT. BRATHING E/U ON RA. NO SIGNS OF ACUTE DISTRESS AT THIS TIME. BED AT LOWEST POSITION. CALL LIGHT WITHIN REACH. WILL CONTINUE TO MONITOR.
[2019-03-14 07:31] LABS: RED CELL DISTRIBUTION WIDTH 16.4 % (11.5-14.5)
[2019-03-14 07:59] LABS: CALCIUM 8.9 mg/dL (8.5-10.1); CARBON DIOXIDE 28.5 mmol/L (21-32); POTASSIUM SERUM 3.8 mmol/L (3.5-5.1)
[2019-03-14 08:03] LABS: CREATININE SERUM 5.1 mg/dL (0.7-1.3)
[2019-03-14 08:57] VITALS: BP 143/51
--- NOTE | 2019-03-14 10:42 | NUR ---
PT COMPLAININGOF 5/10 PAIN IN R LEG AND R PINKY. MEDICATED WTIH PRN NORCO. WILL CONTINUE TO MONITOR.
--- NOTE | 2019-03-14 10:45 | NUR ---
REPORT GIVEN TO JARED NICHOLE. PT RESTING IN BED AT THIS TIME. BREATHIGN E/U. NO SIGNS OF ACUTE DISTRESS AT THIS TIME.
--- NOTE | 2019-03-14 11:00 | NUR ---
RECEIVED PATIENT FROM SOPHIA NICHOLE, AWAKE,ALERT AND ORIENTED. LUNGS CLEAR ON AUSCULATION.HL ON THE RT FOREARM. AV ON THE LT UPPER ARM W/ GOOD BRUIT AND THRILL.
--- NOTE | 2019-03-14 11:30 | NUR ---
ASKED THE WOUND NURSE FOR RECOMNENDATION FOR WOUND CARE TO HIS RT FOOT CELLULITIS.
--- NOTE | 2019-03-14 11:47 | NUR ---
BS CURRENTLY 331, INSULIN AND PO HOME MED HAS BEEN HELD PREVIOUSLY DUE TO PREVIOUS CONCERN OF HYPOGLYCEMIA. SPOKE WITH JATIN OSORIO. WILL FOLLOW UP REGARDING NEW ORDERS.
--- NOTE | 2019-03-14 12:02 | NUR ---
Wound care recommendation requested by CN, per CN no plan for amputation at this time, pt will be discharged. Wound care order placed as: -Cleanse gangrene to right hallux from dorsal extended to plantar area with NS pat dry, apply soaked betadine 4x4 guazes and wrap with kerlix roll daily and prn if soiling.
[2019-03-14 12:21] VITALS: BP 143/55
--- NOTE | 2019-03-14 12:45 | NUR ---
REPORT TO [facility] RN FOR CONTINUE CARE.
--- NOTE | 2019-03-14 12:45 | NUR ---
RECEIVED REPORT FROM CHARGE NURSE JARED NICHOLE AT BEDSIDE, ASSUMED CARE FOR PT, PT RESTING IN BED, IN NO ACUTE DISTRESS, REPORT NO PAIN/DISCOMFORT, TOLERATED LUNCH WELL, IV PATENT AND FLUSHING WELL, RESP E/U, RA, TELE #12, HR-76 AT THIS TIME, DENIED CP/PALPITATION, DENIED VIVAR/DIZZINESS, PALP PULSES, SKIN C/D/W, SEE SKIN ASSESSMENT, DRESSING CDI, WOUND CARE DONE TODAY BY WOUND NURSE, ALL NEEDS ADDRESSED, SAFETY PROTOCOL FOLLOWED, CONTINUE TO MONITOR
--- NOTE | 2019-03-14 15:08 | NUR ---
PT REPORTED PAIN TO (R) BIG TOE WOUND AREA, LOCAL, 09/05, MEDICATED PER PRN ORDER VIA EMAR PER MD ORDER, TOLERATED WELL, EDUCATED PT R/T MED, ASE AND MONITOR, VERBALLY UNDERSTANDING, PT RESTING IN BED IN NO ACUTE DISTRESS AT THIS TIME, CONTINUE TO MONITOR
[2019-03-14 15:33] VITALS: BP 134/59
--- NOTE | 2019-03-14 16:42 | NUR ---
BS CHECKED NOTED 295, PT REFUSED INSULIN, PER PT, INSULIN USUALLY DROP HIS BS VERY LOW, EDUCATED PT R/T HIGH BS AND WOUND HEALING PROGRESS CORRELATION, STILL REFUSED, CHARGE NURSE JARED MADE AWARE, JATIN OSORIO MADE AWARE, CONTINUE TO MONITOR
--- NOTE | 2019-03-14 17:13 | NUR ---
PT RESTING IN BED, IN NO ACUTE DISTRESS, RESP E/U, RA, NO COUGH/SOB NOTED, TELE #12, DENIED CP/PALPITATION, DENIED PAIN/VIVAR/DIZZINESS, IV PATENT AND FLUSHING WELL, WOUND DRESING CDI, (L) ARM FISTULA THRILL/BRUIT (+), PATENT, ALL NEEDS ADDRESSED AT THIS TIME, SAFETY PROTOCOL MAINTAINED, COMFORT MEASUREMENT PROVIDED, WILL ENDORSE TO ONCOMING RN
--- NOTE | 2019-03-14 18:01 | NUR ---
WOUND CARE DONE BY WOUND CARE WHITMAN RN, DRESSING PATENT AND INTACT, PT REPORTED TOLERATED PROCEDURE WELL, REPORT NO PAIN/DISCOMFORT AT THIS TIME, NO OTHER CONCERN NEEDED WHEN ASKED, PT RESTING IN BED, IN NO ACUTE DISTRESS, CONTINUE TO MONITOR
--- NOTE | 2019-03-14 19:20 | NUR ---
REC'D PT FROM DAY NURSE. PT RESTING IN BED. AAOX4, SPEECH CLEAR, FOLLOWS COMMANDS. TELE 12. DENIES CP, DIZZINESS, OR PALPITATIONS. DENIES RESP DISTRESS OR SOB. BREATHING EVEN/UNLABORED ON RA. REPORTS MILD COUGH AT TIMES. NO EDEMA NOTED. ABD SOFT/ROUND. DENIES ABD PAIN, TENDERNESS, OR N/V. VOIDING FREELY. MICHELLE AV SHUNT, BRUIT/THRILL PRESENT. HD TOMORROW. R FOOT DRESSING CDI. AMBULATORY. DENIES PAIN AT THIS TIME. IV TO RFA FLUSHED AND PATENT, SITE WNL. CALL LIGHT WITHIN REACH, BED AT LOWEST POSITION. WILL CONTINUE TO MONITOR.
[2019-03-14 20:54] VITALS: BP 130/56
--- NOTE | 2019-03-14 21:40 | NUR ---
PT C/O R FOOT PAIN 10/05. NORCO GIVEN PER ORDER.
--- NOTE | 2019-03-14 22:32 | NUR ---
PT STILL C/O 10/05 R FOOT PAIN S/P NORCO. DR. TURNER MADE AWARE OF MORPHINE DROP OFF. STATED WILL REORDER.
--- NOTE | 2019-03-15 01:18 | NUR ---
PT RESTING IN BED WITH EYES CLOSED. NO SIGNS OF DISTRESS OR PAIN NOTED. BREATHING EVEN/UNLABORED ON RA. CALL LIGHT WITHIN REACH, BED AT LOWEST POSITION. WILL CONTINUE TO MONITOR.
[2019-03-15 05:52] VITALS: BP 115/58
[2019-03-15 06:38] LABS: BASOPHIL % 0.2 % (0-2); PLATELET COUNT 241 x10^3mcL (130-400)
--- NOTE | 2019-03-15 06:40 | NUR ---
PT C/O R FOOT PAIN 01/05. MORPHINE GIVEN PER ORDER. DRESSING TO R FOOT CDI. NO SIGNFICANT CHANGES DURING SHIFT. CALL LIGHT WITHIN REACH, BED AT LOWEST POSITION. WILL ENDORSE TO DAY NURSE.
[2019-03-15 06:53] LABS: CALCIUM 8.5 mg/dL (8.5-10.1); CARBON DIOXIDE 26.5 mmol/L (21-32); POTASSIUM SERUM 4.3 mmol/L (3.5-5.1)
[2019-03-15 06:58] LABS: CREATININE SERUM 6.8 mg/dL (0.7-1.3)
--- NOTE | 2019-03-15 07:05 | NUR ---
RECEIVED PT FROM EQUALIZING SAW OPERATOR NURSE. PT IN BED SLEEPING, AROUSABLE, RESP E/U ON RA. NO SIGNS OF ACUTE DISTRESS NOTED. ON TELE 12 SHOWING NSR, HR: 75. IV TO RFA, SALINE LOCKED W/ NO ERYTHEMA OR EDEMA. DRESSING TO R FOOT CDI. BED IN LOWEST POSITION AND CALL LIGHT WITHIN REACH. WILL CONTINUE TO MONITOR.
[2019-03-15 07:30] LABS: RED CELL DISTRIBUTION WIDTH 16.3 % (11.5-14.5)
[2019-03-15 10:00] VITALS: BP 160/61
[2019-03-15 12:20] VITALS: BP 158/52
[2019-03-15 17:21] VITALS: BP 140/56
--- NOTE | 2019-03-15 19:25 | NUR ---
PT AMBULATING FROM RESTROOM BACK TO BED, AOX4, RESP E/U ON RA. C/O DIFFICULTY PASSING BM. DAYANARA DE LA PAZ TO FOLLOW UP W/ SCHEDULED COLACE, DENIES PAIN TO R FOOT AT THIS TIME, DRESSING CDI. BED IN LOWEST POSTION AND CALL LIGHT WITHIN REACH. CARE ENDORSED TO DAYANARA DE LA PAZ.
--- NOTE | 2019-03-15 19:30 | NUR ---
PT RECIEVED FROM DAY NURSE. PT RESTING IN BED AT THIS TIME. DENIES PAIN OR DISCOMFORT. PT A/O X4, CALM AND COOPERATIVE A THIS TIME. WEAK PULSES BUE/BLE, NO EDEMA NOTED AT THIS TIME. BREATHING E/U ON RA A THIS TIME. DENIES SOB. ABD SOFT AND ROUND, DENIES PAIN TO PALPATION. PT AMBULATORY AT BASELINE, MILD WEAKNESS TO RLE. R TOE BLACK, DRESSING CDI. IV TO RFA, CDI. BED AT LOWEST POSITION. CALL LIGHT WITHIN REACH. WILL CONTINUE TO MONITOR.
[2019-03-15 20:00] VITALS: BP 152/53
--- NOTE | 2019-03-15 21:00 | NUR ---
PT BLOOD SUGAR 162. PT REFUSING INSULIN COVERAGE. EDUCATED ON NEEDD FOR COVERAGE AND ITS EFFECT ON HEALING. PT CONTINUED TO REFUSE DUE TO HIS SENSITIVITY TO INSULIN.
[2019-03-16] VITALS (8 sets, daily range): BP systolic 122–190; BP diastolic 43–71
--- NOTE | 2019-03-16 00:28 | NUR ---
PT DIALYSIS COMPLETE, 2L REMOVED. PT BP AT THIS TIME 192/67. MEDCATED WTIH PRN HYDRALAZINE. PT ALSO COMPLAINING OF PAIN AT THIS TIME. MEDICATED WITH PRN MORPHINE. WILL CONTINUE TO MONITOR.
--- NOTE | 2019-03-16 01:00 | NUR ---
PT BP RECHECKED, 154/58. WILL CONTINUE TO MONITOR.
--- NOTE | 2019-03-16 06:25 | NUR ---
PT RESTING IN BED AT THIS TIME. BP 168/55 THIS AM, MEDICATED WITH PRN CLONIDINE. NO S/S OF ACUTE DISTRESS AT THIS TIME. ALL NEEDS AND CONCERNS ADDRESSED THIS SHIFT. BED AT LOWEST POSITION. CALL LIGHT WITHIN REACH, WILL ENDORSE TO DAY NURSE.
[2019-03-16 06:33] LABS: BASOPHIL % 0.4 % (0-2); PLATELET COUNT 271 x10^3mcL (130-400)
[2019-03-16 07:05] LABS: RED CELL DISTRIBUTION WIDTH 16.4 % (11.5-14.5)
[2019-03-16 07:33] LABS: CALCIUM 8.8 mg/dL (8.5-10.1); POTASSIUM SERUM 4.1 mmol/L (3.5-5.1)
--- NOTE | 2019-03-16 07:33 | NUR ---
PT LYING IN BED A/A. BREATHING EQUAL/UNLABORED ON RA. NO ACUTE PAIN/ DISTRESS. MICHELLE SHUNT INTACT. R. TOE DRESSING, CDI. NO REDNESS/ SWELLING TO IV SITE. BED IN LOW POSITION, CALL LIGHT IN REACH, SAFETY PRECAUTIONS IN PLACE, WILL CONTINUE TO MONITOR
[2019-03-16 07:35] LABS: CREATININE SERUM 4.2 mg/dL (0.7-1.3)
--- NOTE | 2019-03-16 11:37 | NUR ---
PT LYING IN BED WITH EYES CLOSED, EASILY AROUSABLE. BREATHING EQUAL/UNLABORED ON RA. NO ACUTE DISTRESS. C/O MILD PAIN TO RLE. NO REDNESS/SWELLING TO IV SITE. RODOLFO SHUNT INTACT. BED IN LOW POSITION, CALL LIGHT IN REACH, SAFETY PRECAUTIONS IN PLACE. WILL CONTINUE TO MONITOR
--- NOTE | 2019-03-16 12:24 | NUR ---
1. Recommend continuing CCHO, Renal diet.
--- NOTE | 2019-03-16 12:24 | NUR ---
Follow-up Nutrition Assessment: 257T/A GORDONRAHEEMSHALOM FU LR Dx: R foot cellulitis, renal failure PMHx: renal disease on HD, HTN, HLD, diabetes type 2 Labs: (03/16) NA 135L, BG 242H, BUN 29H, CREAT 4.2H, ALB 2.7L, A1C 7.7H, WBC 11.4H Meds: Adalat, catapres, Colace, D50%, Lipitor, morphine, Humulin, vancomycin, Zofran, zosyn Diet: CCHO, Renal PO Intake: (03/16) breakfast 70%, (03/15) 100% all meals, (03/14) lunch, dinner 90%, breakfast 100% Weights: (03/10) 65.7 kg, (03/16) 65 kg I/Os: (03/15) 2009/ not documented (2009) Skin: R foot black hallux, dressing Jr: 19 Edema: none GI: Last BM: 03/14 RD Note (03/16): Patient said that he has good PO and does not have any N/V/D/C at this time. Per progress note (03/16), Per Dr. Hernandez patient does not need to be transferred to higher level of care for revascularization, as per podiatry they will sign off as Dr. Hernandez will proceed with toe amputation. Estimated Nutritional Needs Based on current body weight (64.9 kg) Energy: 5584-3734 kcal/day (30-35 kcal/kg for dialysis) Protein: 78-91 g/day (1.2-1.4 g/kg for dialysis) Fluid: 7277-8609 mL/day (1 mL/kcal) Nutrition Diagnosis: 1. Increased nutrient needs related to increased metabolic demands as evidenced by HD. (ongoing) Intervention: 1. Recommend continuing CCHO, Renal diet. Monitor/Evaluate: Goal: Have pt meet at least 75% of estimated needs Monitor: PO intake, Labs, GI function F/U in 3-5 days as moderate risk 03/19-
--- NOTE | 2019-03-16 14:34 | NUR ---
DRESSING TO R. FOOT CHANGED, WOUND CARE ORDERS FOLLOWED, PT FCO WELL. DRESSING IS CDI. WILL CONTINUE TO MONITOR
--- NOTE | 2019-03-16 15:38 | NUR ---
PT SITTING IN BED A/A. BREATHING EQUAL/UNLABORED ON RA. NO ACUTE PAIN/ DISTRESS. NO REDNESS/SWELLING TO IV SITE. DRESSING TO R. FOOT, CDI. BED IN LOW POSITION, CALL LIGHT IN REACH, SAFETY PRECAUTIONS IN PLACE. WILL CONITINUE TO MONITOR
--- NOTE | 2019-03-16 17:10 | NUR ---
PT BLOOD SUGAR 41, DEXTROSE GIVEN. WEIGHER AND CHARGER JO NOTIFIED, SHE STATED TO HOLD THE GLIPIZIDE AND THAT SHE WILL ADJUST THE SLIDING SCALE TOMORROW. WILL CONTINUE TO MONITOR
--- NOTE | 2019-03-16 18:51 | NUR ---
PT LYING IN BED WITH EYES CLOSED, EASILY AROUSABLE. BREATHING EQUAL/UNLABORED ON RA. NO ACUTE PAIN/ DISTRESS. NO REDNESS/ SWELLING TO IV SITE. MICHELLE SHUNT INTACT. R. FOOT DRESSING, CDI. BED IN LOW POSITION, CALL LIGHT IN REACH, SAFETY PRECAUTIONS IN BED, WILL ENDORSE TO NIGHT NURSE
--- NOTE | 2019-03-16 20:01 | NUR ---
RECIEVED PT FROM PREVIOUS SHIFT NURSE. PT AOX4. RESTING IN BED. PT DENIES PAIN OR DIFFICULTY BREATHING/ SOB. BED IN LOWEST POSITION AND CALL LIGHT WITHIN REACH. WILL CONTINUE TO MONITOR.
--- NOTE | 2019-03-17 02:00 | NUR ---
PT RESTING IN BED. RR EVEN AND UNLABORED. NO ACUTE DISTRESS. CALL LIGHT WITHIN REACH AND BED IN LOWEST POSITION. WILL CONTINUE TO MONITOR.
[2019-03-17 04:49] VITALS: BP 154/61
[2019-03-17 06:01] LABS: CALCIUM 8.8 mg/dL (8.5-10.1); CARBON DIOXIDE 26.9 mmol/L (21-32); POTASSIUM SERUM 4.2 mmol/L (3.5-5.1)
[2019-03-17 06:04] LABS: BASOPHIL % 0.4 % (0-2); PLATELET COUNT 269 x10^3mcL (130-400)
--- NOTE | 2019-03-17 06:34 | NUR ---
DR. TURNER NOTIFIED OF CREAT 6.0 VIA [facility].
[2019-03-17 06:40] LABS: RED CELL DISTRIBUTION WIDTH 16.7 % (11.5-14.5)
--- NOTE | 2019-03-17 08:01 | NUR ---
AT 0720 - RECEIVED PATIENT FROM NIGHT NURSE. SLEEPING. RESPIRATIONS REGULAR. MONITOR SHOWING SINUS RHYTHM; RATE 70. IV INFUSING D10 AT 20 ML/HR. PATIENT IS NPO FOR POSSIBLE SURGERY TO RLE TODAY. AT 0750 - PATIENT AWAKE, ALERT AND APPEARS ORIENTED. VS WNL. MICHELLE AV SHUNT. PATIENT SCHEDULED FOR HD TODAY.
[2019-03-17 08:11] VITALS: BP 134/53
--- NOTE | 2019-03-17 08:36 | NUR ---
AT 0810 - SEEN BY JATIN BEAUCHAMP. RECEIVED ORDER TO CONSENT PATIENT FOR SURGERY. PATIENT IS SCHEDULED FOR NOON FOR AMPUTATION OF RIGHT RAY TOE.
--- NOTE | 2019-03-17 09:55 | NUR ---
AT 0900 - DIALYSIS NURSE AT BEDSIDE FOR PATIENT'S DIALYSIS. SHE IS AWARE OF PATIENT GOING TO SURGERY FOR 1200 NOON. AT 0915 - SPOKE WITH OR NURSE SPIKE. REPORT GIVEN. THEY WILL COLLECT PATIENT AT 1115. DIALYSIS NURSE MADE AWARE. SHE SPOKE WITH THE STORAGE ARCHITECT AND SHE WILL COMPLETE DIALYSIS AT THAT TIME. SHE REQUESTED THAT SCHEDULED BETABLOCKER, CARVEDILOL BE ADMINSITERED TOWARD THE END OF HD, AT 1030. AT 0940 - OBTAINED WRITTEN CONSENT FOR SURGERY USING STATELESS TELEPHONE MANAGER FIXED INCOME ID # [id number]. SKIN PREP WITH CHLORHEXIDINE BODY WIPES DONE PER PROTOCOL.
--- NOTE | 2019-03-17 11:12 | NUR ---
HEMODIALYSIS COMPLETED. TOTAL OF 1.8 L REMOVED. LAST BP 163/63. CARVEDILOL ADMINISTERED PER ER.
--- NOTE | 2019-03-17 11:43 | NUR ---
AT 1130 - PATIENT TAKEN TO SURGERY.
--- NOTE | 2019-03-17 13:37 | NUR ---
PATIENT BACK IN ROOM FOLLOWING AMPUTATION OF R GREAT TOE UNDER MAC WITH PROPOFOL, KETAMINE AND FENTANYL. PATIENT IS AWAKE AND ORIENTED. APPEARS COMFORTABLE. VS WNL. O2 SAT 94% ON ROOM AIR. DRESSING TO R FOOT IS DRY WITH MINIMAL BRIGHT SEROSANGUINOUS BLEEDING AT TIP OF FOOT. RECEIVED ORDERS FOR WOUND VAC WHEN AVAILABLE. CALL PLACED FOR WOUND CARE NURSE. UNABLE TO REACH AT THIS TIME. IV INFUSION OF DEXTROSE 10% RESUMED AT 20 ML/HR.
--- NOTE | 2019-03-17 15:17 | NUR ---
C/O 11/05 PAIN IN R FOOT. MEDICATED WITH IV MORPHINE PER EMAR.
--- NOTE | 2019-03-17 16:22 | NUR ---
PROCRIT ADMINSITERED PER EMAR. TODAY'S DOSE OF VANCOMYCIN IN PROGRESS AT THIS TIME.
[2019-03-17 16:26] VITALS: BP 139/76
--- NOTE | 2019-03-17 17:46 | NUR ---
NOTED SMALL AMOUNT OF BRIGHT BLEEDING THROUGH DRESSING. DRESSING RE-INFORCED WITH FLUFF GAUZE AND GAUZE BANDAGE. LEG ELEVATED ON PILLOW. PATIENT SITTING UP IN BED FOR DINNER.
--- NOTE | 2019-03-17 18:35 | NUR ---
VSS AND WNL. AFEBRILE. R FOOT DRESSING REMAINS DRY FOLLOWING RE-INFORCEMENT.IV INFUSING DEXTROSE 10% AT 20 ML/HR. HAS EATEN DINNER. PAIN APPEARS UNDER CONTROL AT THIS TIME. WILL ENDORSE CARE TO NIGHT NURSE.
--- NOTE | 2019-03-17 20:12 | NUR ---
PT CURRENTLY RESTING IN BED, NO ACUTE DISTRESS. A/O X4. TELE #12 SHOWING SINUS RHYTHM, DENIES CHEST PAIN. PULSES PALPABLE IN ALL EXTREMITIES, NO EDEMA NOTED, BLE PULSES WEAK. LUNG SOUNDS CTA BILATERALLY, DENIES SOB. BOWEL SOUNDS ACTIVE, LAST BM 03/14/19. MICHELLE AV SHUNT NOTED, LAST HD 03/17/19 1.8L OUT. RLE WEAKNESS. S/P RIGHT GREAT TOE AMPUTATION, REINFORCED DRESSING CDI. C/O RIGHT FOOT PAIN 5/10, PT STATES TOLERABLE AT THIS TIME. IV PATENT AND INTACT. BED IN LOWEST POSITION, SIDE RAILS UP X2, CALL LIGHT WITHIN REACH. WILL CONTINUE TO MONITOR.
[2019-03-17 20:56] VITALS: BP 148/50
--- NOTE | 2019-03-18 00:36 | NUR ---
PT CURRENTLY RESTING IN BED, NO ACUTE DISTRESS. WILL CONTINUE TO MONITOR.
--- NOTE | 2019-03-18 02:14 | NUR ---
LARGE AMOUNT OF SEROSANGUINOUS DRAINAGE AT RIGHT FOOT WOUND DRESSING. DRESSING REINFORCED. PT CURRENTLY RESTING IN BED, NO ACUTE DISTRESS. WILL CONTINUE TO MONITOR.
[2019-03-18 06:02] VITALS: BP 136/35
[2019-03-18 06:31] LABS: BASOPHIL % 0.4 % (0-2); PLATELET COUNT 263 x10^3mcL (130-400)
--- NOTE | 2019-03-18 06:31 | NUR ---
PT SLEPT PERIODICALLY THROUGHOUT NIGHT, NO ACUTE DISTRESS. ALL NEEDS MET AND ATTENDED TO. RIGHT FOOT DRESSING NOTED WITH LARGE AMOUNT OF SEROSANGUINOUS DRAINAGE, DRESSING REINFORCED. IV PATENT AND INTACT. MEDICATED PAIN PER EMAR. BED IN LOWEST POSITION, SIDE RAILS UP X2, CALL LIGHT WITHIN REACH. WILL ENDORSE CARE TO ONCOMING NURSE.
[2019-03-18 07:00] LABS: CALCIUM 8.5 mg/dL (8.5-10.1); CARBON DIOXIDE 28.9 mmol/L (21-32); POTASSIUM SERUM 3.9 mmol/L (3.5-5.1)
[2019-03-18 07:04] LABS: CREATININE SERUM 5.7 mg/dL (0.7-1.3)
[2019-03-18 07:08] LABS: RED CELL DISTRIBUTION WIDTH 16.4 % (11.5-14.5)
--- NOTE | 2019-03-18 07:50 | NUR ---
RECEIVED PATIENT SLEEPING IN BED, NO ACUTE DISTRESS NOTED. PATIENT DENIES PAIN AT THIS TIME. PATIENT DENIES DIZZINESS. A/OX 4, DENIES HEADACHE. TELE MONITOR IN PLACE. WEAK PEDAL PULSE PULSE TO BLE. AV SHUNT NOTED TO MICHELLE. GENERALIZED WEAKNESS NOTED, LIMITED MOVEMENT TO RLE. SEROUSANGUINEOUS DRAINAGE NOTED TO RLE DRESSING. D10 INFUSING TO RFA AT 20ML/HR, IV SITE CDI&PATENT. CALL LIGHT WITHIN REACH, BED IN LOW POSITION, WILL CONTINUE TO MONITOR.
[2019-03-18 08:50] VITALS: BP 161/57
--- NOTE | 2019-03-18 11:31 | NUR ---
PATIENT BLOOD SUGAR WAS 238, PER SLIDING SCALE PATIENT RECEIVED 3UNITS SQ. PATIENT AWARE HE MUST EAT SOMETHING AFTER INSULIN IS GIVEN IT IS FAST ACTING, PATIENT VERBALIZED UNDERSTANDING.
[2019-03-18 14:00] VITALS: BP 141/55
--- NOTE | 2019-03-18 16:00 | NUR ---
WOUND VAC APPLIED BY DAYANARA COLEMAN AND DAYANARA VELOZ AT THIS TIME.
[2019-03-18 16:42] VITALS: BP 155/60
--- NOTE | 2019-03-18 17:30 | NUR ---
PATIENT WAS C/O OF PAIN TO RLE 10/10, MEDICATED PATIENT WITH MORPHINE PER PROTOCOL (SEE EMAR). ALL NEEDS MET AT THIS TIME, NO RESPIRATORY DISTRESS NOTED. CALL LIGHT WITHIN REACH, BED IN LOW POSITION. WILL ENDORSE REPORT TO NIGHT RN.
--- NOTE | 2019-03-18 19:57 | NUR ---
PT CURRENTLY RESTING IN BED, NO ACUTE DISTRESS. A/O X4. NO TELE, MED/SURG. DENIES CHEST PAIN. PULSES PALPABLE IN ALL EXTREMITIES, BLE PULSES WEAK. NO EDEMA NOTED. LUNG SOUNDS CTA BILATERALLY, DENIES SOB. BOWEL SOUNDS ACTIVE, LAST BM 03/18/19. OLIGURIC. MICHELLE AV SHUNT NOTED. LAST HD 03/17/19 1.8L OUT. RLE WEAKNESS. S/P RIGHT GREAT TOE AMPUTATION, WOUND VAC IN PLACE, MINIMAL BRIGHT RED DRAINAGE NOTED. IV PATENT AND INTACT. BED IN LOWEST POSITION, SIDE RAILS UP X2, CALL LIGHT WITHIN REACH. WILL CONTINUE TO MONITOR.
[2019-03-18 20:25] VITALS: BP 139/49
--- NOTE | 2019-03-19 01:48 | NUR ---
PT C/O INSOMNIA, DR CRUZ INFORMED, MEDICATED PER EMAR. PT CURRENTLY RESTING IN BED, NO ACUTE DISTRESS. WILL CONTINUE TO MONITOR.
--- NOTE | 2019-03-19 06:37 | NUR ---
PT SLEPT PERIODICALLY THROUGHOUT NIGHT, NO ACUTE DISTRESS. ALL NEEDS MET AND ATTENDED TO. NO SIGNIFICANT CHANGES. IV PATENT AND INTACT. WOUND VAC IN PLACE, MINIMAL DRAINAGE NOTED. BED IN LOWEST POSITION, SIDE RAILS UP X2, CALL LIGHT WITHIN REACH. WILL ENDORSE CARE TO ONCOMING NURSE.
[2019-03-19 06:46] VITALS: BP 115/54
[2019-03-19 07:00] LABS: CALCIUM 8.5 mg/dL (8.5-10.1)
--- NOTE | 2019-03-19 07:00 | NUR ---
RECEIVED REPORT FROM CHARLEE NICHOLE AT BEDSIDE, PT SLEEPING IN BED IN NO ACUTE DISTRESS
[2019-03-19 07:02] LABS: CARBON DIOXIDE 26.8 mmol/L (21-32); MAGNESIUM 2.1 mg/dL (1.8-2.4); POTASSIUM SERUM 4.4 mmol/L (3.5-5.1)
[2019-03-19 07:08] LABS: CREATININE SERUM 7.1 mg/dL (0.7-1.3)
[2019-03-19 07:14] LABS: BASOPHIL % 0.3 % (0-2); PLATELET COUNT 267 x10^3mcL (130-400)
[2019-03-19 07:24] LABS: RED CELL DISTRIBUTION WIDTH 16.4 % (11.5-14.5)
--- NOTE | 2019-03-19 07:30 | NUR ---
PT RESTING IN BED, IN NO ACUTE DISTRESS, AXOX4, VERBAL, ABLE TO MAKE NEEDS KNOWN, CALM AND COOPPERATIVE, PERRLA, NO REDNESS/DRAINAGE EENT, NO FACIAL DROOP/SLURRED SPEECH, RESP E/U, RA, LUNGS CTAB, MEDSURG, DENIED PAIN/DISCOMFRT AT THIS TIME, DENIED CP/PALPITATION, DENIED VIVAR/DIZZINESS, ABD FLAT AND NON-TENDER TO TOUCH, BS ACTIVE, X 4, AV SHUNT MICHELLE, THRILL/BRUIT (+), PALP PULSES, WEAK TO BLE, CAP REFILL (3), SKIN C/D/W, SEE SKIN ASSESSMENT, WOUNDVAC IN PLACE, FUNCTION PER ORDER, NOTED SANGUNOUS DRAINAGE IN COLLECTING CHAMBER, IV PATENT AND FLUSHING WELL, DRESSING CDI, HD MWF, OLIGUNIC, GENERALIZED WEAKNESS, CONTINENT, ALL NEEDS ADDRESSED, SAFETY PROTOCOL MAINATAINED, CONTINUE TO MONITOR
[2019-03-19 09:26] VITALS: BP 139/54
--- NOTE | 2019-03-19 11:19 | NUR ---
BM X 1, ASSISTED BACK TO BED, PT VISITED BY FAMILY MEMBERS, PT RESTING IN BED IN NO ACUTE DISTRESS, CONTINUE TO MONITOR
[2019-03-19 12:05] VITALS: BP 121/53
--- NOTE | 2019-03-19 12:39 | NUR ---
PT RESTING IN BED, BS CHECKED AND INSULIN GIVEN PER SLIDING SCALE, TOLERATED WELL, NO ASE NOTED AT THIS TIME, EDUCATED PT R/T DM, INSULIN, ASE AND MONITOR, VERBALLY UNDERSTANDING, FAMILY AT BEDSIDE, PT TOLERATED LUNCH WELL AT THIS TIME, WOUND VAC PATENT AND SUCTION WELL, ALL NEEDS ADDRESSED, CONTINUE TO MONITOR
--- NOTE | 2019-03-19 13:25 | NUR ---
PT REPORTED PRESSURE AT IV SITE, FLUSHED, NOTED IV INFILTRATED, IV REMOVED, NEW IV STARTED TO RFA, 24G, FLUSHING WELL, IV FLUID RECONNECTED, PT AND FAMILY AT BEDSIDE MADE AWARE, ALL NEEDS ADDRESSED AT THIS TIME, SAFETY PROTOCOL FOLLOWED, WOUND VAC PATENT AND SUCTION WELL, CONTINUE TO MONITOR
--- NOTE | 2019-03-19 16:23 | NUR ---
PTSLEEPING IN BED, IN NO APPARENT DISTRESS/PAIN, IF PATENT AND INFUSING WELL, DRESSIGN CDI, ALL NEEDS ADDRESSED, SAFETY PROTOCOL FOLLOWED, CONTINUE TO MONTIOR
--- NOTE | 2019-03-19 18:02 | NUR ---
PT RESTING IN BED, IN NO ACUTE DISTRESS, NO FACIAL DROOP/SLURRED SPEECH, DENIED PAIN/DISCOMFORT, VERBAL, ABLE TO MAKE NEEDS KNOWN, RESP E/U, RA, MEDSURG, WOUNDVAC PATENT AND SUCTION PROPERLY, TOLERATED DINNER WELL, IV PATENT AND INFUSING WELL, ALL NEEDS ADDRESSED, VOID X 1, SAFETY PROTOCOL FOLLOWED, WILL ENDORSE TO ONCOMING RN
[2019-03-19 18:07] VITALS: BP 128/56
--- NOTE | 2019-03-19 19:20 | NUR ---
RECIEVED PT RESTING IN BED WITH NO ACUTE DISTRESS NOTED AT THIS TIME, ASSESSMENT PERFORMED AT THIS TIME, PT IS A/OX4 NO COMPLAINTS OF VIVAR OR DIZZINESS AT THIS TIME, PT DENIES PAIN OR SOB, PT IS S/P RIGHT TOES AMPUTATION, WOUND VAC IN PLACE TO THE RIGHT FOOT, IV TO THE RFA, ALL PT NEEDS ATTENDED TO SAFETY PRECAUTIONS IN PLACE, WILL CONTINUE TO MONITOR
[2019-03-19 21:25] VITALS: BP 133/51
[2019-03-20] VITALS (8 sets, daily range): BP systolic 139–179; BP diastolic 44–68
--- NOTE | 2019-03-20 00:15 | NUR ---
PT RESTING IN BED WITH NO ACUTE DISTRESS NOTED AT THIS TIME, PT DENIES PAIN OR SOB, IV INFUSING WELL AND NO REDNESS OR SWELLING. WOUND VAC PRESENT SUCTION TO RIGHT FOOT, ALL PT NEEDS ATTENDED TO,SAFETY PRECAUTIONS IN PLACE WILL CONTINUE TO MONITOR.
--- NOTE | 2019-03-20 05:16 | NUR ---
PT RESTED THROUGH THE NIGHT WITH EPISODIC PAIN TO RLE, TREATED EFFECTIVELY WITH PRN MORPHINE, PT REMAINED STABLE THROUGH CARE, ALL NEEDS ATTENDED TO SAFETY PRECAUTIONS IN PLACE, WILL CONTINUE TO MONITOR AND ENDORSE CARE
[2019-03-20 07:14] LABS: CALCIUM 8.6 mg/dL (8.5-10.1); CARBON DIOXIDE 28.5 mmol/L (21-32); POTASSIUM SERUM 4.7 mmol/L (3.5-5.1)
[2019-03-20 07:23] LABS: PLATELET COUNT 279 x10^3mcL (130-400)
--- NOTE | 2019-03-20 07:30 | NUR ---
PT ENDORSE TO ME THIS MORNING, LAYING IN BED RESTING, AA/O X4 /BREATHING EVEN AND UNLABORED ON RA / NO ACUTE RESP DISTRESS OR SOB NOTED. HD SHCD FOR TODAY. MEDSURG/ DENIES ANY CP OR PRESSURE. BOWLE SOUNDS ACTIVE IN ALL FOUR QUADS. PER PT BM THIS AM. OLIGURIC/ AV SHUNT MICHELLE. GEN WEAKNESS RLE/ NO WEIGHT BEARING TO RIGHT FOOT.RIGHT FOOT WOUND VAC INPLACE. IV TO THE RFA INTACT AND PATENT/ INFUSING DEX 10 % 20 HR/HR, NO REDNESS OR SWELLING NOTED. CALL LIGHT IN REACH. WILL CONTINUE TO MONITOR.
[2019-03-20 07:40] LABS: RED CELL DISTRIBUTION WIDTH 15.8 % (11.5-14.5)
[2019-03-20 07:43] LABS: CREATININE SERUM 8.4 mg/dL (0.7-1.3)
--- NOTE | 2019-03-20 09:16 | NUR ---
HD NURSE AT BEDSIDE STARTING HD. BALL THREAD MACHINE TENDER MUTUC AWARE OF H/H. WILL CONTINUE TO MONITOR.
[2019-03-20 10:51] LABS: rbc morphology (normal/abnorm) NORMAL (NORMAL)
--- NOTE | 2019-03-20 11:15 | NUR ---
VERIFIED WITH DAYANARA HERNDON HD NURSE TOTAL OF TWO UNITS TO BE INFUSE BY HD NURSE. FIRST UNIT PACKED CELLS LEUKOPOOR PRE VS: TEMP 97.7, PULSE 72, BP 151/58, RESP 16 96 % ON RA.
--- NOTE | 2019-03-20 11:30 | NUR ---
1 UNIT OF PACKED CELLS LEUKOPOOR COMPLETE. VS: 166/59, HR 79, TEMP 99.2, RESP 18, 02 95 % NO ADVERSE REACTION NOTED.
[2019-03-20 11:37] LABS: BASOPHIL % 0.7 % (0-2); PLATELET COUNT 269 x10^3mcL (130-400)
[2019-03-20 11:47] LABS: RED CELL DISTRIBUTION WIDTH 16.5 % (11.5-14.5)
--- NOTE | 2019-03-20 11:50 | NUR ---
2 UNITED OF PACKED CELLS LEUKOPOOR COMPLETE GIVEN BY KATRINA VALENZUELA RN.TOTAL OUTPUT 2.4L POST VS: 178/68, RESP 18, HR 80 , 98.9, 96 % RA. TOLERATED WELL/ NO ADVERSE REACTIONS NOTED .
--- NOTE | 2019-03-20 12:02 | NUR ---
H/H 5.09/12 LAB CALLED, JATIN WHITTINGTON AWARE. [facility] CURRENTLY REC 2 UNITS OF PACKED CELLS LEUKOPOOR. TOLERATING WELL. WILL CONTINUE TO MONITOR.
[2019-03-20] MEDS ORDERED: VAN1I IV (12:03)
[2019-03-20 12:43] LABS: burr cell (echinocyte) 1+; rbc morphology (normal/abnorm) ABNORMAL (NORMAL); tear drop cell (dacryocyte) 1+
--- NOTE | 2019-03-20 13:44 | NUR ---
PT C/O RIGHT FOOT PAIN 11/05, MEDICATED PER EMAR. WILL CONTINUE TO MONITOR.
--- NOTE | 2019-03-20 16:26 | NUR ---
PT ACCU CK 166 2 UNITS NEEDED, PATIENT REFUSE
--- NOTE | 2019-03-20 17:00 | NUR ---
EXPLAINED ALL TRANSFER PAPER WORK WITH PT, PT AGREED AND SIGNED ALL PAPERWORK. PT WILL BE GOING TO [facility] IN [place] TODAY, HOLIDAY DETECTOR OPERATOR [id number] .WILL BE GOING WITH IV TO THE RFA/ INTACT AND PATENT/ HEPLOCKED.
--- NOTE | 2019-03-20 17:35 | NUR ---
REPORT GIVEN TO REMEDIOS NICHOLE FROM [facility]. CONSTRUCTION ELECTRICIAN TIME [id number]
--- NOTE | 2019-03-20 17:49 | NUR ---
[facility] ARRIVED TO TRANSFER PT TO [facility]. PT IS AA/O X4, BREATHING EVEN AND UNLABORED ON RA, NO ACUTE RESP DISTRESS OR SOB NOTED. DENIES ANY RIGHT FOOT PAIN AT THIS TIME, MEDICATED PER EMAR. PT BEING TRANSFERED.
== END 2019-03-20 17:54 | disposition home health service (06) | DRG 853 ==
LOC: ED 22:22 → EDBEDREQ 03-07 01:19 → DU 03-07 01:19 → MU 03-12 11:52 → DU 03-13 17:21 → MU 03-18 10:34
PROVIDERS: Emergency Medicine; Family Medicine; Internal Medicine; Internal Medicine Nephrology; ADMIT Internal Medicine
PROC: 0Y6M0Z9 Detachment at Right Foot, Partial 1st Ray, Open Approach (ICD-10-PCS; principal; 2019-03-07)
PROC: 0Y6M0ZB Detachment at Right Foot, Partial 2nd Ray, Open Approach (ICD-10-PCS; 2019-03-07)
PROC: 0Y6M0ZC Detachment at Right Foot, Partial 3rd Ray, Open Approach (ICD-10-PCS; 2019-03-07)
PROC: B4001ZZ Plain Radiography of Abdominal Aorta using Low Osmolar Contrast (ICD-10-PCS; 2019-03-09)
DX: A41.9 Sepsis, unspecified organism (principal); N18.6 End stage renal disease; E43 Unspecified severe protein-calorie malnutrition; I12.0 Hypertensive chronic kidney disease with stage 5 chronic kidney disease or end stage renal disease; E87.1 Hypo-osmolality and hyponatremia; E11.52 Type 2 diabetes mellitus with diabetic peripheral angiopathy with gangrene; I70.261 Atherosclerosis of native arteries of extremities with gangrene, right leg; L03.031 Cellulitis of right toe; E11.22 Type 2 diabetes mellitus with diabetic chronic kidney disease; E78.5 Hyperlipidemia, unspecified; E83.39 Other disorders of phosphorus metabolism; Z99.2 Dependence on renal dialysis; Z68.28 Body mass index [BMI] 28.0-28.9, adult; Z79.84 Long term (current) use of oral hypoglycemic drugs
CPT/HCPCS: 82962; B4164; C1760; C1769; C1884; C1887; C1894; G0378; J0360; J0885-EC; J1170; J1200; J1644; J2001; J2250; J2270; J2405; J2543; J2704; J3010; J3370; J3490; J7030; J7050; P9016; Q0092; Q9967